=== PATIENT | male | born 1985 ===

== ENCOUNTER → 2023-09-04 | Day surgery (SDC) | payer OTHER ==
[2023-08-31 13:53] VITALS: BMI 32.0
[~2023-09-04] MED LIST: BUPIVACAINE HCL/PF 0.25% (2.5MG/ML) 10 ML VIAL ONE; BUPIVACAINE HCL/PF 0.5% (5MG/ML) 10 ML VIAL ONE; LIDOCAINE HCL/PF 1% SDV 5ML VIAL ONE; LIDOCAINE HCL/PF 2% SDV 5ML VIAL ONE
== END | disposition home or self-care (01) ==
LOC: JASU-SURG 04:22
PROVIDERS: ATTEND Physical Medicine & Rehabilitation
PROC: 3E033GC Introduction of Other Therapeutic Substance into Peripheral Vein, Percutaneous Approach (ICD-10-PCS; principal; 2023-09-04)
DX: Z53.8 Procedure and treatment not carried out for other reasons (principal)